=== PATIENT | female | born 1980 | race African-American/Black ===

== ENCOUNTER 2024-09-12 19:32 | Emergency (ER) | payer BC ==
[~2024-09-12] VITALS: Ht 167.6 cm; Wt 67.0 kg
[2024-09-12 19:38] VITALS: O2SAT 97
[2024-09-12 21:20] LABS: BASOPHILS % 0.2 % (0.0-2.0); CHLORIDE 104 mEq/L (98-107); EOSINOPHILS % 0.3 % (0.0-5.0); HEMATOCRIT. 40.6 % (36.0-48.0); HEMOGLOBIN. 13.9 g/dL (12.0-16.0); LYMPHOCYTES % 22.7 % (20.0-50.0); MEAN CORPUSCULAR HEMOGLOBIN 29.4 pg (28.0-32.0); MEAN CORPUSCULAR HGB CONC 34.1 g/dL (31.0-37.0); MEAN CORPUSCULAR VOLUME 86.2 fL (81.0-99.0); MEAN PLATELET VOLUME 7.8 fl (7.4-10.4); MONOCYTES % 5.9 % (2.0-8.0); NEUTROPHILS % 70.9 % (40.0-76.0); PLATELET 252 x1000/uL (130-400); POTASSIUM 3.6 mEq/L (3.5-5.1); RED BLOOD CELL COUNT 4.71 mill/uL (4.2-5.4); RED CELL DISTRIBUTION WIDTH 13.1 % (11.6-14.6); SODIUM 141 mEq/L (136-145); WHITE BLOOD COUNT 5.3 x1000/uL (4.5-11.0)
[2024-09-12 21:21] LABS: CALCIUM 9.3 mg/dL (8.7-10.4); CARBON DIOXIDE 27 mEq/L (21-32)
[2024-09-12] MEDS: SODIUM CHLORIDE 0.9% 1,000 ML IV ONE (21:23)
[2024-09-12 21:26] LABS: CREATININE 0.9 mg/dL (0.6-1.0); GLUCOSE 125 mg/dL (70-105); UREA NITROGEN BLOOD 12 mg/dL (9-23)
[2024-09-12 21:31] LABS: TROPONIN I HIGH SENSITIVITY < 4 ng/L (3.0-34)
[2024-09-12 21:39] LABS: HCG SCREEN NEGATIVE
[2024-09-12 23:03] VITALS: BP 109/77; PULSE 74; RESP 18; TEMP 36.8; O2SAT 98
== END 2024-09-12 23:03 | disposition home or self-care (01) ==
LOC: ER 19:32
DX: R55 Syncope and collapse (principal)
CPT/HCPCS: 80048; 84703; 85025; 84484; 36415; 71045; 93005; 96360; 99285; J7030; Z7610